=== PATIENT | female | born 1975 | race Caucasian/White ===

== ENCOUNTER 2019-02-25 06:19 | Emergency (ER) | payer OTHER ==
[2019-02-25 06:35] VITALS: TEMP 97.3
[2019-02-25 06:42] VITALS: RESP 18
[2019-02-25] MEDS ORDERED: ASPIRIN 81 MG PO STA (06:45)
[2019-02-25] MEDS ORDERED: NITROGLYCERIN SL TABS 0.4 MG TAB SUBLINGUAL STA (06:45)
[2019-02-25] MEDS ORDERED: IPRATROPIUM-ALBUTEROL 3 ML NEB INHALATION STA (06:46)
--- NOTE | 2019-02-25 06:50 | ED ---
Chest Pain HPI - General Chief Complaint: Chest Pain Stated Complaint: Chest Pain Time Seen by Provider: 02/25/19 06:23 Source: patient, family, RN notes reviewed Mode of arrival: wheelchair Limitations: no limitations - History of Present Illness Initial Comments: This a 43-year-old female presents emergency Department chief complaint of chest discomfort. Patient is a sudden onset this discomfort in her chest, neck and arm region started this morning. Patient states that she just does not feel right. She did admit that she woke up to a leg cramp in her right leg that initially started her symptoms. Patient is a heavy smoker has a history of COPD. Patient denies any history of hyperlipidemia, hypertension or diabetes. Patient denies any history of DVT or PE. Patient states she does not feel more short of breath than usual. Patient does admit that she was recently started on phentermine states that she did not take anything this morning. She denies any nausea vomiting. Patient has no clinical headache or dizziness. She does admit that she's had varicose veins in the past and has had surgery on this. Patient does admit that she traveled to [place] last week. - Related Data Home Medications Medication Instructions Recorded Confirmed Phentermine HCl [Adipex-P] 37.5 mg PO DAILY 02/25/19 02/25/19 Allergies Allergy/AdvReac Type Severity Reaction Status Date / Time Iodinated Contrast- Oral and Allergy Unknown Verified 02/25/19 06:47 IV Dye [Iodinated Contrast Media - IV Dye] Review of Systems ROS Statement: Those systems with pertinent positive or pertinent negative responses have been documented in the HPI. ROS Other: All systems not noted in ROS Statement are negative. EKG Findings - EKG Comments: EKG Findings:: EKG performed at 6:30 normal sinus rhythm rate of 76 ND 168 QRS 96 QT/QTC 416/[address] elevation or depression normal axis no abnormal T waves Past Medical History Past Medical History: COPD Additional Past Medical History / Comment(s): back problems, needs back surgery History of Any Multi-Drug Resistant Organisms: None Reported Past Surgical History: Orthopedic Surgery Past Psychological History: Depression Smoking Status: Current every day smoker Past Alcohol Use History: None Reported Past Drug Use History: None Reported General Exam Limitations: no limitations Course Vital Signs 02/25/19 02/25/19 02/25/19 06:30 06:41 07:09 Temperature 97.3 F L Pulse Rate 80 78 Respiratory 20 18 Rate Blood Pressure 134/73 O2 Sat by Pulse 99 Oximetry 02/25/19 02/25/19 02/25/19 07:16 07:25 07:30 Temperature Pulse Rate 80 80 77 Respiratory 18 18 Rate Blood Pressure 139/73 117/76 O2 Sat by Pulse 99 99 Oximetry 02/25/19 08:22 Temperature Pulse Rate 74 Respiratory 18 Rate Blood Pressure 126/85 O2 Sat by Pulse 99 Oximetry Chest Pain MDM - MDM 43-year-old female presented from for chest discomfort. Patient EKG labs and chest x-ray which is unremarkable though she has typical chest pain symptoms with risk factors. Patient will be admitted for chest pain rule out patient was started on heparin. Disposition Clinical Impression: Chest pain Disposition: ADMITTED IP TO THIS HOSP Referrals: None,Stated [Primary Care Provider] - 1-2 days Time of Disposition: 09:04
[2019-02-25 06:59] LABS: Basophils % (A) 1 %; Eosinophils # (A) 0.2 k/uL (0-0.7); Eosinophils % (A) 4 %; HGB 15.4 gm/dL (11.4-16.0); Lymphocytes # (A) 1.8 k/uL (1.0-4.8); Lymphocytes % (A) 28 %; MCH 29.8 pg (25.0-35.0); MCHC 32.7 g/dL (31.0-37.0); MCV 91.2 fL (80.0-100.0); Mean Platelet Volume 8.1; Monocytes # (A) 0.5 k/uL (0-1.0); Monocytes % (A) 7 %; Neutrophils # (A) 3.8 k/uL (1.3-7.7); Neutrophils % (A) 58 %; Platelet Count 278 k/uL (150-450); RBC 5.16 m/uL (3.80-5.40); RDW 13.3 % (11.5-15.5); WBC 6.5 k/uL (3.8-10.6)
[2019-02-25 07:04] LABS: ALT 25 U/L (9-52); AST 26 U/L (14-36); African American GFR (CKD) >90 (>60 ml/min/1.73 sqM); Albumin 4.2 g/dL (3.5-5.0); Alkaline Phosphatase 69 U/L (38-126); Anion Gap 10 mmol/L; Blood Urea Nitrogen 7 mg/dL (7-17); Calcium 9.3 mg/dL (8.4-10.2); Carbon Dioxide 27 mmol/L (22-30); Chloride 101 mmol/L (98-107); Glucose 94 mg/dL (74-99); Potassium 3.7 mmol/L (3.5-5.1); Sodium 138 mmol/L (137-145); Total Bilirubin 0.9 mg/dL (0.2-1.3); Total Protein 7.3 g/dL (6.3-8.2)
--- NOTE | 2019-02-25 07:05 | XR ---
EXAMINATION TYPE: XR chest 2V DATE OF EXAM: 02/25/2019 COMPARISON: NONE HISTORY: Chest pain TECHNIQUE: Frontal and lateral views of the chest are obtained. FINDINGS: There is no focal air space opacity. No evidence for pneumothorax. No pleural effusion. The cardiac silhouette size is within normal limits. The osseous structures are grossly intact. IMPRESSION: 1. No acute cardiopulmonary process.
[2019-02-25 07:17] LABS: D-Dimer 0.29 mg/L FEU (<0.60); INR 0.9 (<1.2); Partial Thromboplastin Time 26.9 sec (22.0-30.0); Prothrombin Time 10.1 sec (9.0-12.0)
[2019-02-25] MEDS ORDERED: HEPARIN SODIUM,PORCINE 5,000 UNIT/ML 1 ML VIAL IV ONE (09:02)
[2019-02-25] MEDS ORDERED: NITROGLYCERIN SL TABS 0.4 MG TAB SUBLINGUAL PRN (09:02)
[2019-02-25] MEDS ORDERED: HEPARIN SOD,PORK IN 0.45% NACL 25,000 UNIT in 0.45% NACL 1 250ML.BAG IV SCH (09:15)
[2019-02-25 09:53] VITALS: BP 118/78; PULSE 78
[2019-02-26] MEDS ORDERED: ASPIRIN 325 MG TAB PO SCH (09:00)
== END 2019-02-25 09:52 | disposition other institution (70) ==
LOC: EC 06:19 → UNDOADMOB 09:18 → 1SOBS 09:18
DX: R07.89 Other chest pain (principal); R25.2 Cramp and spasm; J44.9 Chronic obstructive pulmonary disease, unspecified; F17.200 Nicotine dependence, unspecified, uncomplicated; Z79.899 Other long term (current) drug therapy; Z91.041 Radiographic dye allergy status
CPT/HCPCS: 36415; 71046; 80053; 83690; 83735; 84484; 85025; 85379; 85610; 85730; 93005; 94640; 99285